=== PATIENT | female | born 1980 | race Hispanic/Latino ===

== ENCOUNTER 2021-08-01 07:40 | Day surgery (SDC) | payer BC ==
[2021-07-31 16:00] LABS: BASOPHILS % (AUTO) 0.5 % (0.0-5.0); EOSINOPHILS % (AUTO) 2.3 % (0.0-8.0); HEMATOCRIT 31.1 % (36-48); LYMPHOCYTES % (AUTO) 27.9 % (21.0-51.0); MEAN CORPUSCULAR HEMOGLOBIN 22.2 pg (27.0-33.0); MEAN CORPUSCULAR HGB CONC 29.9 g/dL (32.0-36.0); MEAN CORPUSCULAR VOLUME 74.2 fL (79-99); MONOCYTES % (AUTO) 7.3 % (3.0-13.0); NEUTROPHILS % (AUTO) 61.6 % (40.0-77.0); PLATELET COUNT (AUTO) 320 K/uL (130-400); RED BLOOD CELL COUNT(AUTO) 4.19 MIL/uL (4.00-5.50); RED CELL DISTRIBUTION WIDTH 16.2 % (11.0-15.5); WHITE BLOOD COUNT (AUTO) 9.2 K/uL (4.8-10.8)
[2021-07-31 16:19] VITALS: BP 126/76
[2021-08-01] VITALS (14 sets, daily range): BP systolic 113–126; BP diastolic 37–74
[~2021-08-01] VITALS: Ht 162.6 cm; Wt 89.1 kg
[~2021-08-01 07:40] MED LIST: FEXO1TAB8 PO
[2021-08-01] MEDS ORDERED: CALDOLOR 800MG+NS 250ML 250 ML IV ONE (07:43)
[2021-08-01] MEDS ORDERED: CALDOLOR 800MG+NS 250ML 250 ML IV SCH (08:00)
[2021-08-01] MEDS: CEFAZOLIN SODIUM 1 GM VIAL IVP SCH ×2 (08:00→09:00)
[2021-08-01] MEDS ORDERED: LACTATED RINGERS 1000ML 1,000 ML IV ONE (08:20)
[2021-08-01] MEDS ORDERED: LIDOCAINE PF 100MG/5ML (2%) SYRINGE 5ML ONE (08:55)
[2021-08-01] MEDS ORDERED: PROPOFOL 10 MG/ML 20ML VIAL IV ONE (08:55)
[2021-08-01] MEDS ORDERED: FENTANYL CITRATE PF 50 MCG/1 ML 5ML AMP IV ONE (08:55)
[2021-08-01] MEDS ORDERED: MIDAZOLAM HCL 1 MG/ML 2ML VIAL ONE (08:56)
[2021-08-01] MEDS ORDERED: MEPERIDINE-PF 25 MG/ML SYG ONE (09:11)
== END 2021-08-01 11:00 | disposition home or self-care (01) ==
LOC: DAH 07:40
PROVIDERS: ATTEND Obstetrics & Gynecology
DX: N92.1 Excessive and frequent menstruation with irregular cycle (principal); Z20.822 Contact with and (suspected) exposure to COVID-19; D25.1 Intramural leiomyoma of uterus; D64.9 Anemia, unspecified; N85.4 Malposition of uterus; G43.909 Migraine, unspecified, not intractable, without status migrainosus; F32.9 Major depressive disorder, single episode, unspecified; Z98.890 Other specified postprocedural states; Z83.3 Family history of diabetes mellitus; Z82.49 Family history of ischemic heart disease and other diseases of the circulatory system; Z83.2 Family history of diseases of the blood and blood-forming organs and certain disorders involving the immune mechanism; Z87.891 Personal history of nicotine dependence; Z72.89 Other problems related to lifestyle
CPT/HCPCS: 36415; 58558; 84703; 85025; 86850; 86900; 86901; 87635; A4213; A4215; A4221; A4222; A4223; A4351; A4355; A4663; A6260; C9803; J0690; J1741; J2001; J2175; J2250; J2704; J3010; J7030 ×2; J7120